=== PATIENT | male | born 1995 | race Hispanic/Latino ===

== ENCOUNTER 2017-11-29 11:32 | Emergency (ER) | payer SELFPAY ==
[2017-11-29] MEDS ORDERED: FENTANYL CITR 100 MCG/2 ML ONE (12:23)
[2017-11-29] MEDS ORDERED: NA CHLORIDE 0.9% 1,000 ML ONE (12:23)
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
[2017-11-29] MEDS ORDERED: TETANUS & DIPHTHERIA TOX,ADULT 0.5 ML VIAL ONE (12:49)
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
[2017-11-29 13:08] LABS: Absolute Lymphocytes (CBC) 2.3 K/uL (0.7-4.9); Absolute Monocytes 0.9 K/uL (0.1-1.3); Absolute Neutrophil 5.7 K/uL (1.8-8.0); Basophils % 0.5 % (0-1.3); Eosinophils % 1.8 % (0-4.4); Lymphocytes % 25.2 % (15.3-44.8); MCH 29.3 pg (27.0-35.0); MCV 85.6 fL (80-100); MPV 9.7 fL (7.6-11.3); Monocytes % 9.7 % (3.3-12.3); RBC Red Blood Cell Count 5.13 M/uL (4.33-5.43)
[2017-11-29 13:11] LABS: Bicarbonate 27 mEq/L (21-31); Glucose Level 102 mg/dL (65-120); Potassium 3.8 mEq/L (3.6-5.0); Sodium Level 139 mEq/L (135-145)
[2017-11-29 13:12] LABS: BUN Blood Urea Nitrogen 18 mg/dL (6-20); Glomerular Filtration Rate > 90 mL/min (=/>90)
[2017-11-29] MEDS ORDERED: CEFTRIAXONE/SWI 1gm 1 GM/10 ML SYR ONE (13:54)
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
[2017-11-29 15:21] VITALS: TEMP 98.2
[2017-11-29 15:26] VITALS: BP 137/82; O2SAT 99
== END 2017-11-29 15:15 | disposition home or self-care (01) ==
LOC: ER 11:32
DX: S32.028A Other fracture of second lumbar vertebra, initial encounter for closed fracture (principal); S32.038A Other fracture of third lumbar vertebra, initial encounter for closed fracture; S80.812A Abrasion, left lower leg, initial encounter; V86.55XA Driver of 3- or 4- wheeled all-terrain vehicle (ATV) injured in nontraffic accident, initial encounter; Z23 Encounter for immunization
CPT/HCPCS: 36415; 70450; 71260; 72100; 72125; 74177; 80048; 85025; 90714; 96361; 96365; 96375; 99285; J0696; J3010; J7030; Q9967